=== PATIENT | male | born 1965 | race Caucasian/White ===

== ENCOUNTER 2018-01-07 14:26 | Emergency (ER) | payer OTHER ==
[~2018-01-07] VITALS: Ht 175.3 cm; Wt 93.0 kg
[2018-01-07] MEDS ORDERED: VIIBRYD40 MG PO (14:52)
[2018-01-07] MEDS ORDERED: SUCR1 PO (17:05)
== END 2018-01-07 17:31 | disposition home or self-care (01) ==
LOC: ER 14:26
DX: R13.10 Dysphagia, unspecified (principal); Z91.013 Allergy to seafood; Z79.899 Other long term (current) drug therapy; Z87.891 Personal history of nicotine dependence
CPT/HCPCS: 74220; 99283-25

== ENCOUNTER 2018-01-10 14:21 | Emergency (ER) | payer OTHER ==
[~2018-01-10] VITALS: Ht 175.3 cm; Wt 91.6 kg
[~2018-01-10 14:21] MED LIST: SUCR1 PO; VIIBRYD40 MG PO
== END 2018-01-10 14:44 | disposition home or self-care (01) ==
LOC: ER 14:21
DX: S91.331A Puncture wound without foreign body, right foot, initial encounter (principal); Z23 Encounter for immunization; F32.9 Major depressive disorder, single episode, unspecified; Z91.013 Allergy to seafood; Z79.899 Other long term (current) drug therapy; Z87.891 Personal history of nicotine dependence; W22.09XA Striking against other stationary object, initial encounter
CPT/HCPCS: 90471; 90714; 99282

== ENCOUNTER 2021-09-10 21:18 | Emergency (ER) | payer OTHER ==
[~2021-09-10] VITALS: Ht 172.7 cm; Wt 106.6 kg
[2021-09-10 21:53] LABS: BASOPHILS ABSOLUTE AUTO 0.04 K/mm3 (0.00-0.23); BASOPHILS PERCENT AUTO 1 % (0-2); EOSINOPHILS ABSOLUTE AUTO 0.16 K/mm3 (0.00-0.68); EOSINOPHILS PERCENT AUTO 2 % (0-6); Hematocrit 47.3 % (37.0-53.0); Hemoglobin 16.1 g/dL (13.5-17.5); IMMATURE GRAN ABSOLUTE AUTO 0.02 K/mm3 (0.00-0.10); IMMATURE GRAN PERCENT AUTO 0 % (0-1); LYMPHOCYTES ABSOLUTE AUTO 0.91 K/mm3 (0.84-5.20); LYMPHOCYTES PERCENT AUTO 11 % (21-46); MONOCYTES ABSOLUTE AUTO 0.33 K/mm3 (0.16-1.47); MONOCYTES PERCENT AUTO 4 % (4-13); Mean Corpuscular HGB 31.4 pg (26.0-34.0); Mean Corpuscular Volume 92 fL (80-100); NEUTROPHILS ABSOLUTE AUTO 6.68 K/mm3 (1.96-9.15); NEUTROPHILS PERCENT AUTO 82 % (41-73); Platelet Count 216 K/mm3 (150-400); RDW Standard Deviation 41.6 fL (35.1-46.3); Red Blood Cell Count 5.12 M/mm3 (4.30-5.90); White Blood Cell Count 8.14 K/mm3 (4.00-11.30)
[2021-09-10 22:13] LABS: Alanine Aminotransfer (ALT/SGP 41 U/L (12-78); Albumin, Blood 3.7 g/dL (3.4-5.0); Albumin/Globulin Ratio 0.9 (0.8-1.8); Alk Phos 98 U/L (50-136); Anion Gap 5 mmol/L (6-16); Aspartate Aminotrans (AST/SGOT 21 U/L (12-37); Bilirubin, Total 0.3 mg/dL (0.1-1.0); Blood Urea Nitrogen 20 mg/dL (8-24); Bun/Creatinine Ratio 20.7 (12.0-20.0); CO2, Blood 27 mmol/L (21-32); Chloride, Blood 108 mmol/L (98-108); Creatinine, Blood 0.97 mg/dL (0.60-1.20); Glomerular Filtration Rate >60 (60-); Glucose, Blood 126 mg/dL (70-99); Sodium, Blood 140 mmol/L (136-145); Total Protein, Blood 7.7 g/dL (6.4-8.2)
[2021-09-11] MEDS ORDERED: MECL25 PO (01:29)
== END 2021-09-11 01:45 | disposition home or self-care (01) ==
LOC: ER 21:18
PROVIDERS: Physician Assistant
DX: R42 Dizziness and giddiness (principal); Z91.013 Allergy to seafood; Z79.899 Other long term (current) drug therapy; Z87.891 Personal history of nicotine dependence
CPT/HCPCS: 70450; 80053; 85025; 93005; 93010; 99284-25